=== PATIENT | female | born 1985 | race Caucasian/White ===

== ENCOUNTER 2016-10-25 19:55 | Emergency (ER) | payer OTHER ==
[~2016-10-25] VITALS: Ht 167.6 cm; Wt 83.9 kg
[2016-10-25 20:00] VITALS: BP 152/89; PULSE 114; RESP 16; TEMP 97.8; O2SAT 97
[2016-10-25] MEDS ORDERED: IBUPROFEN 600 MG TABLET PO ONE ×2 (20:15→20:30)
[2016-10-25] MEDS ORDERED: LORazepam 1 MG TABLET PO ONE ×2 (20:15→20:30)
[2016-10-25 20:58] LABS: BILIRUBIN,URINE NEGATIVE (NEGATIVE); BLOOD, URINE NEGATIVE (NEGATIVE); CLARITY/URINE CLEAR (CLEAR); COLOR,URINE YELLOW (YELLOW); GLUCOSE,URINE 1+ (NEGATIVE); KETONES,URINE 1+ (NEGATIVE); LEUKOCYTE ESTERASE ,URINE NEGATIVE (NEGATIVE); NITRITE, URINE NEGATIVE (NEGATIVE); PROTEIN URINE NEGATIVE (NEGATIVE); UROBILINOGEN,URINE 0.2 (0.2-1.0)
[2016-10-25 23:13] VITALS: BP 126/77; PULSE 95; RESP 17; TEMP 97.8; O2SAT 99
== END 2016-10-25 22:16 | disposition home or self-care (01) ==
LOC: SED 19:55
DX: S43.401A Unspecified sprain of right shoulder joint, initial encounter (principal); S16.1XXA Strain of muscle, fascia and tendon at neck level, initial encounter; R03.0 Elevated blood-pressure reading, without diagnosis of hypertension; M54.5 Low back pain; F41.9 Anxiety disorder, unspecified; V89.2XXA Person injured in unspecified motor-vehicle accident, traffic, initial encounter; Y93.89 Activity, other specified; Y99.8 Other external cause status; Y92.89 Other specified places as the place of occurrence of the external cause
CPT/HCPCS: 72100; 72125; 73030; 81003; 99285; J7030